=== PATIENT | male | born 1995 | race Caucasian/White ===

== ENCOUNTER → 2018-02-05 | Day surgery (SDC) | payer BC, OTHER, SELFPAY ==
[~2018-02-05] MED LIST: Bupivacaine/Epinephrine 0.25% 30 ML VIAL ONE; Dexamethasone 20 MG/5 ML VIAL ONE; Fentanyl 100 MCG/2 ML VIAL ONE; HYDROmorphone 0.5 MG/0.5 ML SYRINGE ONE; Lidocaine 1% PF 5 ML VIAL ONE; Midazolam HCl 2 mg/2 ml Vial ONE; Morphine 5 MG/ML SYRINGE ONE; Ondansetron HCl/PF 4 MG/2 ML Vial ONE; PROPOFOL 200 MG/20 ML VIAL ONE; Promethazine HCl 25 MG/ML VIAL ONE; Succinylcholine Chloride 20 MG/ML 10 ml SYRINGE FS ONE; cefOXitin 2 GM in Sodium Chloride 0.9% 100 ML IVPB SCH
[2018-02-05 12:51] LABS: #Basophils 0.1 thou/uL (0.0-0.2); #Lymphocytes 1.9 thou/uL (1.20-3.40); #Monocytes 0.5 thou/uL (0.11-0.59); #Neutrophils 7.7 thou/uL (1.40-6.50); %Basophils 0.9 % (0.0-1.0); %Eosinophils 0.5 % (0.0-10.0); %Lymphocytes 18.4 % (21.0-51.0); %Monocytes 5.2 % (0.0-10.0); %Neutrophils 75.1 % (42.0-75.0); Hemoglobin 16.9 g/dL (14.0-18.0); Mean Corpuscular HGB CONC 35.8 g/dL (32.0-36.0); Mean Corpuscular Volume 86.6 fl (80.0-94.0); Mean Platelet Volume 6.9 fL (7.4-10.4); Platelet Count 364 thou/uL (130-400); RBC Distribution Width 10.7 % (11.5-14.5); Red Blood Cell (RBC) Count 5.44 mill/uL (4.70-6.10); White Blood Cell (WBC) Count 10.2 thou/uL (4.8-10.8)
[2018-02-05 13:03] LABS: ALT (SGPT) 122 U/L (8-55); AST (SGOT) 49 U/L (5-34); Albumin 4.8 g/dL (3.5-5.0); Alkaline Phosphatase 56 U/L (40-150); Anion Gap 14 mmol/L (10-20); BUN (Urea Nitrogen) 11 mg/dL (8.9-20.6); Bilirubin, Total 0.4 mg/dL (0.2-1.2); Calc. Creatinine Clearance 0 mL/min (70-130); Carbon Dioxide 26 mmol/L (22-29); Chloride 103 mmol/L (98-107); Estimated GFR-MDRD Greater than 90; Globulin 3.2 g/dL (2.4-3.5); Glucose 124 mg/dL (70-105); Lipase 14 U/L (8-78); Sodium 139 mmol/L (136-145)
[2018-02-05 14:01] LABS: Bilirubin Negative (Negative); Blood, Urine Negative (Negative); Clarity Clear (Clear); Glucose, Urine (Dipstick) Negative (Negative); Leukocyte Negative (Negative); Nitrite Negative (Negative); Protein, Urine (Dipstick) Negative (Neg-Trace); Urobilinogen 0.2 mg/dL (0.2-1.0); pH, Urine 8.5 (5.0-9.0)
--- NOTE | 2018-02-05 15:33 | CT ---
ABDOMEN CT WITHOUT CONTRAST PELVIC CT WITHOUT CONTRAST: Date: 02/05/18 HISTORY: Abdominal pain. COMPARISON: None. TECHNIQUE: Abdomen and pelvis CT are performed without IV or oral contrast, utilizing renal stone protocol. Justin nal reformatted images are submitted for interpretation. FINDINGS: ABDOMEN CT: Chronic change in lung bases. Normal heart size. No pericardial effusion. Aorta has a normal caliber. Nonspecific periaortic and aortocaval lymph nodes. Limited evaluation of the solid organs by the absence of IV contrast. Heterogeneous attenuation of th e liver due to areas of fatty infiltration and fatty sparing. Spleen, pancreas, and adrenal glands ar e unremarkable. Unremarkable gallbladder. No mesenteric mass, free air, or free fluid. There are a few scattered nonspecific mesenteric lymph n odes. Limited evaluation of the alimentary canal due to lack of oral contrast. Gastric mucosa, duodenum, an d multiple normal caliber small bowel loops are noted. Ileocecal junction is normal. There are puncta te appendicoliths in the proximal aspect of the appendix. There is air attenuation in the mid portion of the appendix. The distal appendix also has some appendicolith. Nevertheless, no inflammation of t he appendix. Scattered fecal material in a nondistended, nondilated colon. Bilaterally, no hydronephrosis, nephrolithiasis, or perinephric fat stranding. Bilateral ureters have a normal caliber. No hydroureter, periureteral fat stranding, or ureterolithiasis. PELVIC CT: Urinary bladder is unremarkable. No pelvic mass, lymphadenopathy, free air, or free fluid. No lytic or blastic lesions in the osseous structures. IMPRESSION: 1. No evidence of obstructive uropathy. 2. Appendicoliths, without evidence of appendicitis. POS: GUY
--- NOTE | 2018-02-05 21:12 | HP ---
CHIEF COMPLAINT: Right lower quadrant abdominal pain. HISTORY OF PRESENT ILLNESS: The patient is a 22-year-old otherwise healthy male. He had ac brayden onset of right lower abdominal pain about 7:00 this morning. He had nausea, but no vomiting. He presented to the emergency room for further evaluation. White blood cell count upon testing was onl y 10.6. CT scan was obtained, which appeared to reveal an appendicolith, but no acute inflamed appen shanelle. Due to this concerning physical examination, he was transferred to this facility for further ev aluation by myself. PAST MEDICAL HISTORY: Negative. PAST SURGICAL HISTORY: Negative. MEDICATIONS: None. ALLERGIES: No known drug allergies. PERSONAL AND SOCIAL HISTORY: He is single with no children. 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 He does not smoke, and drinks alcohol occasionally. REVIEW OF SYSTEMS: Otherwise unremarkable. FAMILY HISTORY: Noncontributory. PHYSICAL EXAMINATION: VITAL SIGNS: He is afebrile. Vital signs within normal limits. GENERAL: He is a well-developed, well-nourished, pleasant male, in no acute distress. He i s alert and oriented x3. HEAD, EYES, EARS, NOSE, AND THROAT: Unremarkable. NECK: Supple without mass or tenderness. LUNGS: Clear to auscultation throughout. CARDIAC: Regular rate and rhythm without murmur. ABDOMEN: Soft, nontender, nondistended. He does, however, have focal tenderness in the right lower quadrant with guarding consistent with acute appendicitis. EXTREMITIES: Unremarkable. ASSESSMENT: The patient with acute appendicitis. PLAN: Laparoscopic appendectomy. I discussed the operation in detail with the patient as well as po tential risks. He understands and agrees to proceed with surgery at this time.
--- NOTE | 2018-02-06 14:13 | OP ---
DATE OF PROCEDURE: 02/05/2018 PREOPERATIVE DIAGNOSIS: Acute appendicitis. POSTOPERATIVE DIAGNOSIS: Acute appendicitis. OPERATION PERFORMED: Laparoscopic appendectomy. SURGEON: Akbra Ramírez M.D. ANESTHESIA: General endotracheal. INDICATIONS: The patient is a 22-year-old male. He presents this time with findings consis tent with acute appendicitis, taken to the operative room at this time for laparoscopic appendectomy. PROCEDURE IN DETAIL: Informed consent was obtained. The patient was taken to the Operating Room where general endotracheal anesthesia was obtained with the patient in the supine position. Local anesthet ic was infiltrated into the intended incision sites, and 5-mm infraumbilical incision was created. Ve ress needle was passed into the peritoneal cavity. Pneumoperitoneum was established using carbon diox janie up to a pressure of 15 mmHg. A 5-mm trocar port was passed through the same incision. Laparoscopi c camera was passed through this port. Under direct vision, two additional ports were placed includin g a 5-mm right subcostal port and a 10/12-mm suprapubic port. Attention was then turned to the right lower quadrant. After mobilization of bowel, there was obvious evidence of acute appendicitis. The a ppendix was gently mobilized away from the surrounding structures, and the mesoappendix was grasped. It was divided with the tripolar cautery so as to skeletonize the base of the appendix. The appendix was then divided with the Endo CHAMP stapler to include a small cuff of cecum. Staple lines were intact . The appendix was placed into a laparoscopic pouch and retrieved through the suprapubic port. The f ascia at this port was approximated with 0 Vicryl suture and the Granee needle. Port was replaced, an d the right lower quadrant was inspected. Hemostasis was found to be intact, and the area was irriga sue. Staple line was also noted to be intact. All ports and instruments were removed under direct vis ion. Pneumoperitoneum was carefully evacuated. 0.25% Marcaine with epinephrine was infiltrated into e ach port site. Skin edges were approximated with 4-0 Prolene subcuticular suture as well as Steri-Str ips and Mastisol. Band-aid dressings were applied. There were no complications. The patient tolerated the procedure well and was taken to Recovery in stable condition. FINDINGS: The patient had a very enlarged, thickened and inflamed appendix consistent with early acu te appendicitis. There was essentially no blood loss and no complications during the operation.
== END ==
LOC: SCSER 12:25 → SDC 14:22
PROVIDERS: ATTEND Specialist
PROC: 0DTJ4ZZ Resection of Appendix, Percutaneous Endoscopic Approach (ICD-10-PCS; principal; 2018-02-05)
DX: K35.80 Unspecified acute appendicitis (principal)
CPT/HCPCS: 74176; 80053; 81003; 83690; 85025; 88304; J2270; J0694; J1100; J1170; J2001; J2250; J2405; J2550; J2704; J3010; J7050